=== PATIENT | male | born 1970 | race African-American/Black ===

== ENCOUNTER 2016-12-07 12:30 | Emergency (ER) | payer MEDICAID ==
[~2016-12-07] VITALS: Ht 172.7 cm; Wt 73.0 kg
[~2016-12-07 12:30] MED LIST: ASPI-1035 PO
[2016-12-07] MEDS ORDERED: ONDANSETRON HCL 4MG/2ML VIAL IV STA (13:34)
[2016-12-07] MEDS ORDERED: SODIUM CHLORIDE 0.9% 1,000 ML IV ONE (13:34)
[2016-12-07] MEDS ORDERED: MECLIZINE 25MG TABLET PO ONE (13:45)
[2016-12-07 14:06] LABS: BASOPHILS % 0.1 % (0.0-2.0); HEMATOCRIT. 42.5 % (42.0-52.0); HEMOGLOBIN. 14.3 g/dL (14.0-18.0); LYMPHOCYTES % 8.4 % (20.0-50.0); MEAN CORPUSCULAR HEMOGLOBIN 31.5 pg (28.0-32.0); MEAN CORPUSCULAR HGB CONC 33.6 g/dL (31.0-37.0); MEAN PLATELET VOLUME 9.4 fl (7.4-10.4); MONOCYTES % 3.7 % (2.0-8.0); NEUTROPHILS % 87.8 % (40.0-76.0); PLATELET 176 x1000/uL (130-400); RED BLOOD CELL COUNT 4.52 mill/uL (4.7-6.1); WHITE BLOOD COUNT 7.6 x1000/uL (4.5-11.0)
[2016-12-07 14:13] LABS: ALBUMIN 4.1 g/dL (3.4-5.0); ANION GAP 11; CALCIUM 9.7 mg/dL (8.5-10.1); CARBON DIOXIDE 29 mEq/L (21-32); CHLORIDE 106 mEq/L (98-107); INDEX HEMOLYSI 1 (1-3); INDEX ICTERIC 1 (1-4); INDEX LIPEMIC 1 (1-3); UREA NITROGEN BLOOD 16 mg/dL (7-21)
[2016-12-07 14:15] LABS: INR 1.1; PROTHROMBIN TIME 11.3 sec
[2016-12-07 14:19] LABS: ALANINE AMINOTRANSFERASE 31 IU/L (13-61); eGFR > 60 mL/min (>60)
[2016-12-07 14:21] LABS: NT PRO B-TYPE NATRIURETIC PEP 48 pg/mL (5-125); TROPONIN I < 0.02 ng/mL (0.00-0.04)
[2016-12-07 16:37] VITALS: BP 124/75
== END 2016-12-07 16:41 | disposition home or self-care (01) ==
LOC: ER 14:14
DX: R42 Dizziness and giddiness (principal); E78.00 Pure hypercholesterolemia, unspecified; Z88.0 Allergy status to penicillin; Z79.82 Long term (current) use of aspirin
CPT/HCPCS: 36415; 80053; 82962; 83880; 84484; 85025; 85610; 93005; 96361; 96374; 99285; J2405; J7030; Z7610; J8597

== ENCOUNTER 2017-12-15 17:19 | Emergency (ER) | payer SELFPAY ==
[~2017-12-15] VITALS: Ht 167.6 cm; Wt 73.0 kg
[~2017-12-15 17:19] MED LIST changes: -ASPI-1035 PO; +ASPI-1159 PO
[2017-12-15 18:22] LABS: BASOPHILS % 0.4 % (0.0-2.0); EOSINOPHILS % 0.7 % (0.0-5.0); HEMATOCRIT. 43.1 % (42.0-52.0); HEMOGLOBIN. 14.5 g/dL (14.0-18.0); LYMPHOCYTES % 20.5 % (20.0-50.0); MEAN CORPUSCULAR HEMOGLOBIN 31.5 pg (28.0-32.0); MEAN CORPUSCULAR VOLUME 93.8 fL (80.0-94.0); MEAN PLATELET VOLUME 8.5 fl (7.4-10.4); MONOCYTES % 9.2 % (2.0-8.0); NEUTROPHILS % 69.2 % (40.0-76.0); PLATELET 202 x1000/uL (130-400); RED BLOOD CELL COUNT 4.59 mill/uL (4.7-6.1); RED CELL DISTRIBUTION WIDTH 12.9 % (11.6-14.6)
[2017-12-15 18:24] LABS: CHLORIDE 106 mEq/L (98-107)
[2017-12-15 20:13] LABS: CLARITY URINE CLEAR (CLEAR); COLOR URINE YELLOW (YELLOW); KETONES URINE 2+ (NEGATIVE); LEUKOCYTE ESTERASE URINE NEGATIVE (NEGATIVE); NITRITE URINE NEGATIVE (NEGATIVE); OCCULT BLOOD URINE 2+ (NEGATIVE); PROTEIN URINE NEGATIVE (NEGATIVE); SPECIFIC GRAVITY URINE 1.018 (1.005-1.030); UROBILINOGEN URINE 0.2 E.U./dL (0.2-1.0)
[2017-12-16] MEDS ORDERED: ACETAMINOPHEN 325MG TABLET PO ONE (02:30)
[2017-12-16 04:29] VITALS: BP 123/80
== END 2017-12-16 04:30 | disposition home or self-care (01) ==
LOC: ER 18:25
DX: R10.11 Right upper quadrant pain (principal); R10.12 Left upper quadrant pain; E78.00 Pure hypercholesterolemia, unspecified; Z88.0 Allergy status to penicillin; Z79.82 Long term (current) use of aspirin
CPT/HCPCS: 36415; 76770; 80053; 81003; 83690; 85025; 99285

== ENCOUNTER 2021-03-17 17:18 | Emergency (ER) | payer OTHER ==
[~2021-03-17] VITALS: Ht 172.7 cm; Wt 75.0 kg
[~2021-03-17 17:18] MED LIST changes: -ASPI-1159 PO; +ASPI-1497 PO
[2021-03-17 19:24] LABS: CHLORIDE 110 mEq/L (98-107)
[2021-03-17] MEDS ORDERED: IOHEXOL-350 100 ML BOTTLE ONE (20:24)
[2021-03-17 23:36] VITALS: BP 122/62
== END 2021-03-17 23:38 | disposition home or self-care (01) ==
LOC: ER 17:18
DX: L81.8 Other specified disorders of pigmentation (principal); E78.00 Pure hypercholesterolemia, unspecified
CPT/HCPCS: 36415; 73206; 80048; 99285; Q9967; Z7610

== ENCOUNTER 2021-10-08 09:04 | Emergency (ER) | payer OTHER ==
[~2021-10-08] VITALS: Ht 172.7 cm; Wt 79.0 kg
[2021-10-08] MEDS ORDERED: ACETAMINOPHEN WITH CODEINE 300/30MG TABLET PO ONE (09:15)
[2021-10-08] MEDS ORDERED: TOPUD PO (09:43)
[2021-10-08] MEDS ORDERED: ONDANSETRON HCL 4MG TABLET PO ONE (10:00)
[2021-10-08] MEDS ORDERED: MECLIZINE 25MG TABLET PO ONE (10:00)
[2021-10-08 10:37] LABS: BASOPHILS % 0.2 % (0.0-2.0); EOSINOPHILS % 0.3 % (0.0-5.0); HEMATOCRIT. 44.6 % (42.0-52.0); HEMOGLOBIN. 14.9 g/dL (14.0-18.0); LYMPHOCYTES % 12.3 % (20.0-50.0); MEAN CORPUSCULAR HEMOGLOBIN 31.7 pg (28.0-32.0); MEAN CORPUSCULAR VOLUME 95.1 fL (80.0-94.0); MEAN PLATELET VOLUME 9.5 fl (7.4-10.4); MONOCYTES % 6.6 % (2.0-8.0); NEUTROPHILS % 80.6 % (40.0-76.0); PLATELET 206 x1000/uL (130-400); RED BLOOD CELL COUNT 4.69 mill/uL (4.7-6.1); RED CELL DISTRIBUTION WIDTH 13.2 % (11.6-14.6)
[2021-10-08 10:47] LABS: CHLORIDE 107 mEq/L (98-107)
[2021-10-08] MEDS ORDERED: MECL-159 PO (10:50)
[2021-10-08] MEDS ORDERED: ONDA4TAB5 PO (10:51)
[2021-10-08 11:03] VITALS: BP 145/73
== END 2021-10-08 11:05 | disposition home or self-care (01) ==
LOC: ER 09:04
DX: M25.512 Pain in left shoulder (principal)
CPT/HCPCS: 36415; 73030; 80053; 85025; 99284; Q0162; J8597

== ENCOUNTER 2021-10-15 09:54 | Emergency (ER) | payer OTHER ==
[~2021-10-15] VITALS: Ht 172.7 cm; Wt 83.0 kg
[~2021-10-15 09:54] MED LIST changes: +MECL-159 PO; +ONDA4TAB5 PO; +TOPUD PO
[2021-10-15] MEDS ORDERED: SODIUM CHLORIDE 0.9% 1,000 ML IV ONE (10:45)
[2021-10-15 10:56] LABS: BASOPHILS % 0.3 % (0.0-2.0); EOSINOPHILS % 0.7 % (0.0-5.0); HEMATOCRIT. 42.5 % (42.0-52.0); HEMOGLOBIN. 14.9 g/dL (14.0-18.0); LYMPHOCYTES % 22.6 % (20.0-50.0); MEAN CORPUSCULAR HEMOGLOBIN 32.9 pg (28.0-32.0); MEAN CORPUSCULAR VOLUME 93.9 fL (80.0-94.0); MONOCYTES % 9.8 % (2.0-8.0); NEUTROPHILS % 66.6 % (40.0-76.0); PLATELET 198 x1000/uL (130-400); RED BLOOD CELL COUNT 4.53 mill/uL (4.7-6.1); RED CELL DISTRIBUTION WIDTH 12.8 % (11.6-14.6)
[2021-10-15 11:06] LABS: CHLORIDE 108 mEq/L (98-107)
[2021-10-15 12:19] VITALS: BP 144/92
== END 2021-10-15 12:25 | disposition home or self-care (01) ==
LOC: ER 09:54
DX: R42 Dizziness and giddiness (principal); M79.621 Pain in right upper arm; Z20.822 Contact with and (suspected) exposure to COVID-19; E78.00 Pure hypercholesterolemia, unspecified; Z79.82 Long term (current) use of aspirin; Z88.0 Allergy status to penicillin
CPT/HCPCS: 36415; 70450; 71045; 80053; 83880; 84484; 85025; 87426; 93005; 96360; 99285; J7030; 96361

== ENCOUNTER 2023-06-17 11:59 | Emergency (ER) | payer OTHER ==
[~2023-06-17] VITALS: Ht 170.2 cm; Wt 82.0 kg
[~2023-06-17 11:59] MED LIST changes: -MECL-159 PO; +MECL-299 PO
[2023-06-17 12:03] VITALS: TEMP 98.7; O2SAT 97
[2023-06-17] MEDS ORDERED: METH-653 MT (12:26)
[2023-06-17 12:30] VITALS: BP 134/78; PULSE 89; RESP 16
[2023-06-17] MEDS ORDERED: KETOROLAC 60MG/2ML VIAL IM ONE (12:30)
== END 2023-06-17 12:42 | disposition home or self-care (01) ==
LOC: ER 11:59
DX: M54.9 Dorsalgia, unspecified (principal); E78.00 Pure hypercholesterolemia, unspecified; Z88.0 Allergy status to penicillin; Z98.890 Other specified postprocedural states
CPT/HCPCS: 99283; 96372; J1885

== ENCOUNTER 2024-07-15 13:29 | Emergency (ER) | payer OTHER ==
[~2024-07-15] VITALS: Ht 172.7 cm; Wt 81.6 kg
[~2024-07-15 13:29] MED LIST changes: +METH-653 MT
[2024-07-15 13:37] VITALS: O2SAT 100
[2024-07-15 14:10] LABS: BASOPHILS % 0.1 % (0.0-2.0); EOSINOPHILS % 0.1 % (0.0-5.0); HEMATOCRIT. 47.6 % (42.0-52.0); HEMOGLOBIN. 15.8 g/dL (14.0-18.0); LYMPHOCYTES % 10.8 % (20.0-50.0); MEAN CORPUSCULAR HEMOGLOBIN 31.7 pg (28.0-32.0); MEAN CORPUSCULAR HGB CONC 33.1 g/dL (31.0-37.0); MEAN CORPUSCULAR VOLUME 95.7 fL (80.0-94.0); MEAN PLATELET VOLUME 9.2 fl (7.4-10.4); MONOCYTES % 5.2 % (2.0-8.0); NEUTROPHILS % 83.8 % (40.0-76.0); PLATELET 192 x1000/uL (130-400); RED BLOOD CELL COUNT 4.98 mill/uL (4.7-6.1); WHITE BLOOD COUNT 7.6 x1000/uL (4.5-11.0)
[2024-07-15] MEDS ORDERED: MECLIZINE 25MG TABLET PO ONE (14:15)
[2024-07-15] MEDS ORDERED: ONDANSETRON HCL 4MG/2ML INJ IV ONE (14:15)
[2024-07-15 14:17] LABS: CHLORIDE 107 mEq/L (98-107); POTASSIUM 4.4 mEq/L (3.5-5.1); SODIUM 139 mEq/L (136-145)
[2024-07-15 14:18] LABS: CARBON DIOXIDE 26 mEq/L (21-32)
[2024-07-15 14:19] LABS: CALCIUM 10.1 mg/dL (8.7-10.4)
[2024-07-15 14:23] LABS: CREATININE 1.3 mg/dL (0.6-1.3); GLUCOSE 163 mg/dL (70-105); UREA NITROGEN BLOOD 13 mg/dL (9-23)
[2024-07-15 14:25] LABS: ALANINE AMINOTRANSFERASE 57 IU/L (10-49); ALBUMIN 4.7 g/dL (3.2-4.8); ASPARTATE AMINOTRANSFERASE 26 IU/L (<34); BILIRUBIN DIRECT 0.3 mg/dL (<=3.0); BILIRUBIN TOTAL 1.2 mg/dL (0.1-1.0)
[2024-07-15 14:26] LABS: PROTEIN TOTAL 7.5 g/dL (6.0-8.3)
[2024-07-15 14:33] LABS: TROPONIN I HIGH SENSITIVITY < 4 ng/L (3.0-53)
[2024-07-15] MEDS: MECLIZINE 25MG TABLET PO NR (17:11)
[2024-07-15] MEDS: ONDANSETRON HCL 4MG/2ML INJ IV NR (17:11)
[2024-07-15] MEDS: LACTATED RINGERS 1,000 ML IV SCH (20:03)
[2024-07-15 20:17] LABS: CLARITY URINE CLEAR (CLEAR); COLOR URINE YELLOW (YELLOW); GLUCOSE URINE NEGATIVE (NEGATIVE); KETONES URINE TRACE (NEGATIVE); LEUKOCYTE ESTERASE URINE NEGATIVE (NEGATIVE); NITRITE URINE NEGATIVE (NEGATIVE); OCCULT BLOOD URINE NEGATIVE (NEGATIVE); PROTEIN URINE 1+ (NEGATIVE); SPECIFIC GRAVITY URINE 1.026 (1.005-1.030); UROBILINOGEN URINE 0.2 E.U./dL (0.2-1.0)
[2024-07-15 20:34] LABS: BACTERIA URINE NONE SEEN; RBC URINE 0-2 /hpf (0-2); SQUAMOUS EPITHELIAL CELL URINE 1+ /lpf (RARE/1+); WBC URINE 0-2 /hpf (0-2)
[2024-07-15 20:56] VITALS: BP 133/85; PULSE 80; RESP 16; TEMP 36.39180; O2SAT 98
== END 2024-07-15 21:38 | disposition short-term general hospital (02) ==
LOC: ER 13:29
DX: R42 Dizziness and giddiness (principal); E78.00 Pure hypercholesterolemia, unspecified; Z79.82 Long term (current) use of aspirin; Z88.0 Allergy status to penicillin
CPT/HCPCS: 80076; 80048; 81003; 85025; 84484; 36415; 70450; 93005; 96361; 96374; 99285; J8597; J2405; Z7610